=== PATIENT | female | born 1985 | race Caucasian/White ===

== ENCOUNTER 2020-02-19 16:37 | Emergency (ER) | payer OTHER, SELFPAY ==
--- NOTE | ~2020-02-19 | XR_ITS ---
XR foot LT min 3V DATE: 02/19/2020 16:58 INDICATION: Pain at the plantar area and third through fifth metatarsals TECHNIQUE: 4 views COMPARISON: None FINDINGS: No fracture or dislocation, periosteal reaction or bone destruction. Joint spaces are prese rved. IMPRESSION: No significant abnormality Reviewed, dictated and finalized at location A. IMPRESSION: No significant abnormality
[2020-02-19 16:46] VITALS: BP 152/95; PULSE 92; RESP 16; TEMP 36.6; O2SAT 99
--- NOTE | 2020-02-19 16:48 | ED.LOWEXIN ---
HPI - Extremity Injury (Lower) General Chief Complaint: Extremity Injury, Lower Stated Complaint: lt foot pain Time Seen by Provider: 02/19/20 16:51 Source: patient and RN notes reviewed Mode of arrival: ambulatory Limitations: no limitations History of Present Illness HPI Narrative: 34-year-old female who presents to [facility] care accompanied by daughter with complaints of pain to her left foot for the past 2 days. She states that she was playing a virtual video game and is unsure of exact injury to foot, is unsure if she stepped down too hard, denies rolling foot or fall. Patient has minimal swelling to distal forefoot with sharp pain voiced under her 3rd,4th and 5th toes with no redness or bruising noted to foot.Patient states that she has applied ice to her foot and taken some Ibuprofen, pain is aggravated with ambulation and weight bearing of left foot. MD complaint: foot injury (left) Onset (ago): day(s) (2) Injury: Left: foot Type of Injury: unknown Place: home Severity: moderate Severity scale (1-10): 7 Relieving factors: cold therapy Exacerbating factors: weight bearing Associated symptoms: swelling Treatments prior to arrival: cold therapy and NSAIDS Related Data Home Medications Medication Instructions Recorded Confirmed labetalol 200 mg PO Q12H 02/19/20 02/19/20 Allergies Allergy/AdvReac Type Severity Reaction Status Date / Time latex Allergy Unknown Verified 02/19/20 16:44 Review of Systems Review of Systems: Narrative: CONSTITUTIONAL: Denies fever, chills, or sweats. EYES: Denies visual changes, redness, or discharge. ENT: Denies rhinorrhea, congestion, sore throat, or otalgia. CARDIOVASCULAR: Denies chest pain, palpitations, or edema. RESPIRATORY: Denies cough or dyspnea. GASTROINTESTINAL: Denies abdominal pain, nausea, vomiting, or diarrhea. GENITOURINARY: Denies dysuria or hematuria. SKIN: Denies rash or itching. MUSCULOSKELETAL: Denies back pain,positive for pain to left foot with minimal swelling to forefoot, pain sharp under 3,4,and 5th toes. NEUROLOGIC: Denies headache, numbness, or weakness. PSYCHIATRIC: Denies anxiety or depression. All systems reviewed & are unremarkable except as noted in HPI and below PMFSH Past Medical History Medical History (Updated 02/22/20 @ 11:02 by Carmen Plascencia NP) Fibromyalgia Hypertension Family History Family History Father Family history of diabetes mellitus in first degree relative Family history of congestive heart failure Mother Family history of diabetes mellitus in first degree relative Social History Social History (Updated 02/22/20 @ 11:04 by Carmen Plascencia NP) Smoking status: Never smoker Alcohol intake: never Living arrangements: with family Gender identity (if verbalized by the patient): Female Comments At time of signature, agree with nursing past medical, surgical, social and family history. There is no relevant family history pertinent to the presenting complaint Exam Narrative: Exam Narrative: GENERAL: Well-appearing, well-nourished, and in no acute distress. HEAD: Normocephalic, atraumatic. EYES: PERRLA and EOMI. ENT: Nares clear, no rhinorrhea or epistaxis. Mucous membranes moist. NECK: Supple. CHEST: Clear to auscultation. No respiratory distress. HEART: Regular rate and rhythm. No murmur heard. Normal peripheral pulses. ABDOMEN: Soft, nontender, nondistended, normal active bowel sounds. EXTREMITIES: Normal range of motion. minimal edema o left forefoot with sharp pain voiced under 3,4,5th toes. Sensation, mobilty and circulation intact to left foot and toes. No bruising or redness noted to foot. SKIN: Warm, dry, no rash. NEURO: No focal deficits. Alert and oriented x3. Course Vital Signs Vital signs: Vital Signs Temperature 36.6 C 02/19/20 16:46 Pulse Rate 92 02/19/20 16:46 Respiratory Rate 16 02/19/20 16:46 Blood Pressure 152/95 H 02/19/20
== END 2020-02-19 17:10 | disposition home or self-care (01) ==
PROVIDERS: Emergency Provider Registered Nurse
DX: S90.32XA Contusion of left foot, initial encounter (principal); X58.XXXA Exposure to other specified factors, initial encounter; Y93.C1 Activity, computer keyboarding; M79.7 Fibromyalgia; I10 Essential (primary) hypertension
CPT/HCPCS: 73630; 99203; G0463

== ENCOUNTER → 2021-09-15 13:33 | Outpatient (CLI) | payer OTHER, SELFPAY ==
--- NOTE | ~2021-09-15 | CT_ITS ---
EXAMINATION: CT chest abdomen pelvis w con EXAM DATE: 09/15/2021 14:09 INDICATION: Brain mass. TECHNIQUE: Spiral CT of the chest, abdomen and pelvis was performed following intravenous injection o f 100 mL Omnipaque 350. Axial, coronal and sagittal images chest, abdomen and pelvis were reviewed. Coronal maximum intensity pixel images of chest reviewed. The dose-length product (DLP) for this ex amination was 1133.54 mGy-cm. The exposure was tailored according to patient size (auto mA exposure control), and iterative reconstruction (ASIR) was used as additional dose reduction technique. There is no prior study for comparison. FINDINGS: CHEST: The lungs are clear. There are no pleural or pericardial effusions. Tracheobronchial tree is patent. There is no mediastinal, hilar or axillary lymphadenopathy. There is no pneumothorax. Heart normal in size. No evidence of coronary arterial calcification. ABDOMEN PELVIS: There is hepatic steatosis without suspicious focal lesion identified. Spleen, adrena l glands, pancreas are unremarkable. Gallbladder is unremarkable. No biliary obstruction. Portal a nd splenic veins are patent. Kidneys enhance symmetrically. There is no hydronephrosis. The uteru s is not identified and has likely been surgically resected. The bladder is unremarkable. There is no retroperitoneal or pelvic lymphadenopathy. The appendix is normal. The stomach and small bowel are unremarkable. There is expected amount of c olonic stool. No free intraperitoneal gas. There are no osteoblastic or osteolytic lesions identi fied. IMPRESSION: 1. No evidence of thoracic, abdominal or pelvic malignancy. 2. Hepatic steatosis. Reviewed, dictated and finalized at location B. [employer]
[2021-09-15 13:58] LABS: Estimated Glomerular Filt Rate > 60
== END ==
DX: R22.0 Localized swelling, mass and lump, head (principal); G93.89 Other specified disorders of brain; K76.0 Fatty (change of) liver, not elsewhere classified
CPT/HCPCS: 71260; 74177; Q9967